=== PATIENT | male | born 1995 | race Caucasian/White ===

== ENCOUNTER 2024-08-09 07:57 | Outpatient (CLI) | payer OTHER, SELFPAY | END 2024-08-09 07:58 | disposition home or self-care (01) | LOC: NFLDREF 08-12 20:30 | PROVIDERS: PCP Family Medicine; Referring Provider Family Medicine; Visit Provider Family Medicine | DX: Z13.6 Encounter for screening for cardiovascular disorders (principal) | CPT/HCPCS: 80061 ==